=== PATIENT | male | born 1960 | race Caucasian/White ===

== ENCOUNTER 2019-04-20 07:59 | Outpatient (CLI) | payer OTHER, SELFPAY ==
--- NOTE | 2019-04-20 08:50 | DI.RAD_ITS ---
EXAM: XR CHEST 2V PA LATERAL INDICATION: SHORTNESS OF BREATH, R06.02. COMPARISON: No exams were available for comparison TECHNIQUE: 2D digital imaging was performed. FINDINGS: The heart size is normal. The lungs appear clear. No infiltrate effusion or pneumothorax is seen. No thoracic compression fractures or rib fractures are identified. IMPRESSION: Negative chest x-ray.
[2019-04-20] MEDS: Albuterol HFA 18 GM 200 PUFF INH IH (09:19)
[2019-04-20] MEDS: Inhaler, Assist Device 1 EACH MC (09:19)
== END 2019-04-20 08:19 ==
PROVIDERS: PCP Nurse Practitioner Family; Visit Provider Orthopaedic Surgery
DX: R06.02 Shortness of breath (principal)
CPT/HCPCS: 94060; 71046

== ENCOUNTER → 2021-03-08 01:48 | Outpatient (CLI) | payer OTHER, SELFPAY ==
--- NOTE | 2021-03-08 13:36 | DI.RAD_ITS ---
Exam(s) XR ANKLE RT 2V EXAM: XR ANKLE RT 2V CLINICAL HISTORY: ARTHRITIS,M13.80,. TECHNIQUE: 2D digital imaging was performed. COMPARISON: No exams were available for comparison FINDINGS: Limited two view study of the right ankle (AP and lateral views) reveals no evidence of fracture or w idening of the mortise. Talar dome appears unremarkable. There are no obvious degenerative changes in the ankle and subtalar joints. There is a large inferior calcaneal spur which measures 9 by 5 mil limeters. There is no calcification in the adjacent plantar fascia. Mild calcification is noted at the insertional aspect of the Achilles tendon on the posterior aspect of the calcaneus. There is no evidence of osseous tarsal coalition. IMPRESSION: DATA REPOSITORY: RADIATION DOSE DELIVERED:
== END ==
PROVIDERS: PCP Nurse Practitioner Family; Visit Provider Chiropractor
DX: M13.871 Other specified arthritis, right ankle and foot (principal); M77.31 Calcaneal spur, right foot
CPT/HCPCS: 73600